=== PATIENT | male | born 1985 | race African-American/Black ===

== ENCOUNTER 2018-02-04 22:39 | Inpatient (IN) | payer SELFPAY ==
[~2018-02-04] VITALS: Ht 182.9 cm; Wt 71.7 kg
[2018-02-04] MEDS ORDERED: IPRATROPIUM BROMIDE (0.02%) 0.5MG/2.5ML NEB HHN STA (23:11)
[2018-02-04] MEDS ORDERED: SODIUM CHLORIDE 0.9% 1,000 ML IV ONE (23:11)
[2018-02-04] MEDS ORDERED: METHYLPREDNISOLONE SOD SUCC 125 MG/2 ML VIAL IV STA (23:11)
[2018-02-04] MEDS ORDERED: MAGNESIUM 2 G PREMIX 50 ML IV ONE (23:15)
[2018-02-05] MEDS: ALBUTEROL (0.083%) 2.5MG/3ML NEB HHN SCH ×2 (00:05→00:37)
[2018-02-05 00:16] LABS: BASOPHILS % 0.7 % (0.0-2.0); EOSINOPHILS % 1.5 % (0.0-5.0); HEMATOCRIT. 38.5 % (42.0-52.0); HEMOGLOBIN. 12.9 g/dL (14.0-18.0); LYMPHOCYTES % 32.8 % (20.0-50.0); MEAN CORPUSCULAR HEMOGLOBIN 28.3 pg (28.0-32.0); MEAN CORPUSCULAR VOLUME 84.5 fL (80.0-94.0); MEAN PLATELET VOLUME 8.3 fl (7.4-10.4); MONOCYTES % 8.9 % (2.0-8.0); NEUTROPHILS % 56.1 % (40.0-76.0); PLATELET 321 x1000/uL (130-400); RED BLOOD CELL COUNT 4.55 mill/uL (4.7-6.1)
[2018-02-05 00:20] LABS: CHLORIDE 103 mEq/L (98-107)
[2018-02-05] MEDS ORDERED: ALBUTEROL (0.083%) 2.5MG/3ML NEB HHN SCH (01:00)
[2018-02-05] MEDS ORDERED: IPRATROPIUM BROMIDE (0.02%) 0.5MG/2.5ML NEB HHN STA (01:00)
[2018-02-05 04:00] VITALS: BP 127/74
[2018-02-05 04:30] VITALS: BP 132/74
[2018-02-05] MEDS ORDERED: IPRATROPIUM/ALBUTEROL 0.5-3(2.5)MG/3ML NEB HHN PRN (05:45)
[2018-02-05 08:00] VITALS: BP 141/77
[2018-02-05] MEDS: IPRATROPIUM/ALBUTEROL 0.5-3(2.5)MG/3ML NEB HHN SCH ×3 (08:08→14:33)
[2018-02-05] MEDS ORDERED: FLUTICASONE/VILANTEROL 200-25 BLST.W.DEV ORI SCH (09:00)
[2018-02-05] MEDS ORDERED: PREDNISONE 20MG TABLET PO SCH (09:00)
[2018-02-05] MEDS ORDERED: BUDESONIDE 0.5MG/2ML NEB HHN SCH ×2 (09:00)
[2018-02-05 09:18] LABS: CHLORIDE 103 mEq/L (98-107)
[2018-02-05 12:00] VITALS: BP 146/65
[2018-02-05 16:00] VITALS: BP 130/66
== END 2018-02-05 19:41 | disposition left against medical advice (07) | DRG 141 ==
LOC: ER 22:39 → 6EST 02-05 01:57 → ENRESERV 02-05 03:00
PROVIDERS: ADMIT Specialist; ATTEND Specialist
DX: J45.901 Unspecified asthma with (acute) exacerbation (principal); F17.210 Nicotine dependence, cigarettes, uncomplicated; Z53.21 Procedure and treatment not carried out due to patient leaving prior to being seen by health care provider; Z95.2 Presence of prosthetic heart valve
CPT/HCPCS: 36415; 71045; 80048; 93005; 94640; 96365; 96375; 99285; J2930; J3475; J7030; J7512; J7611; J7620; J7626

== ENCOUNTER 2018-02-09 02:01 | Emergency (ER) | payer SELFPAY ==
[~2018-02-09] VITALS: Ht 185.4 cm; Wt 79.0 kg
[2018-02-09] MEDS ORDERED: IPRATROPIUM BROMIDE (0.02%) 0.5MG/2.5ML NEB HHN STA (02:07)
[2018-02-09] MEDS ORDERED: PREDNISONE 20MG TABLET PO STA (02:07)
[2018-02-09] MEDS ORDERED: ALBUTEROL (0.083%) 2.5MG/3ML NEB HHN STA (02:07)
[2018-02-09 04:24] VITALS: BP 143/86
== END 2018-02-09 04:26 | disposition home or self-care (01) ==
LOC: ER 02:01
DX: J45.901 Unspecified asthma with (acute) exacerbation (principal)
CPT/HCPCS: 71045; 94644; 99285; J7512; J7611

== ENCOUNTER 2018-08-18 19:53 | Emergency (ER) | payer MEDICAID, OTHER ==
[~2018-08-18] VITALS: Ht 182.9 cm; Wt 70.0 kg
[2018-08-18 20:45] VITALS: BP 127/77
== END 2018-08-18 22:00 | disposition left against medical advice (07) ==
LOC: ER 19:53
DX: J45.909 Unspecified asthma, uncomplicated (principal); Z53.21 Procedure and treatment not carried out due to patient leaving prior to being seen by health care provider

== ENCOUNTER 2018-08-19 08:50 | Emergency (ER) | payer OTHER ==
[~2018-08-19] VITALS: Ht 185.4 cm; Wt 73.0 kg
[2018-08-19 11:00] VITALS: BP 112/72
[2018-08-19] MEDS ORDERED: BACITRACIN ZINC OINT UDPKT TOP ONE (11:15)
[2018-08-19] MEDS ORDERED: ACETAMINOPHEN 325MG TABLET PO ONE (11:45)
== END 2018-08-19 12:19 | disposition home or self-care (01) ==
LOC: ER 08:50
DX: S62.606A Fracture of unspecified phalanx of right little finger, initial encounter for closed fracture (principal); S61.212A Laceration without foreign body of right middle finger without damage to nail, initial encounter; S61.216A Laceration without foreign body of right little finger without damage to nail, initial encounter; Z88.6 Allergy status to analgesic agent; W22.8XXA Striking against or struck by other objects, initial encounter; Y93.89 Activity, other specified; Y92.89 Other specified places as the place of occurrence of the external cause; Y99.8 Other external cause status
CPT/HCPCS: 29130; 73140; 99283; A4217

== ENCOUNTER 2018-10-24 04:36 | Emergency (ER) | payer MEDICAID, OTHER ==
[~2018-10-24] VITALS: Ht 175.3 cm; Wt 79.0 kg
[2018-10-24] MEDS ORDERED: METHYLPREDNISOLONE SOD SUCC 125 MG/2 ML VIAL IV STA (06:15)
[2018-10-24] MEDS ORDERED: IPRATROPIUM BROMIDE (0.02%) 0.5MG/2.5ML NEB HHN STA (06:15)
[2018-10-24] MEDS ORDERED: ALBUTEROL (0.083%) 2.5MG/3ML NEB HHN STA (06:15)
[2018-10-24 06:25] VITALS: BP 121/71
== END 2018-10-24 06:41 | disposition left against medical advice (07) ==
LOC: ER 04:36 → CANBEDREQ 07:47
DX: R06.02 Shortness of breath (principal); R07.9 Chest pain, unspecified; J45.909 Unspecified asthma, uncomplicated; I50.9 Heart failure, unspecified; F17.210 Nicotine dependence, cigarettes, uncomplicated; Z88.6 Allergy status to analgesic agent; Z95.2 Presence of prosthetic heart valve
CPT/HCPCS: 99283

== ENCOUNTER 2018-11-13 23:58 | Emergency (ER) | payer MEDICAID ==
[~2018-11-13] VITALS: Ht 175.3 cm; Wt 77.0 kg
[2018-11-14] MEDS ORDERED: ALBUTEROL (0.083%) 2.5MG/3ML NEB HHN STA (00:15)
[2018-11-14] MEDS ORDERED: IPRATROPIUM BROMIDE (0.02%) 0.5MG/2.5ML NEB HHN STA (00:15)
[2018-11-14] MEDS ORDERED: METHYLPREDNISOLONE SOD SUCC 125 MG/2 ML VIAL IV STA (00:15)
[2018-11-14] MEDS ORDERED: MAGNESIUM 2 G PREMIX 50 ML IV STA (00:15)
[2018-11-14 00:58] LABS: HEMATOCRIT 43.4 % (42.0-52.0); HEMOGLOBIN 14.7 g/dL (14.0-18.0); MEAN CORPUSCULAR HEMOGLOBIN 30.3 pg (28.0-32.0); MEAN CORPUSCULAR VOLUME 89.7 fL (80.0-94.0); PLATELET 262 x1000/uL (130-400); RED BLOOD CELL COUNT 4.84 mill/uL (4.7-6.1); RED CELL DISTRIBUTION WIDTH 17.7 % (11.6-14.6)
[2018-11-14 01:04] LABS: CHLORIDE 107 mEq/L (98-107)
[2018-11-14 01:12] LABS: INR 1.2; PARTIAL THROMBOPLASTIN TIME 28.4 sec (23.4-31.0)
[2018-11-14 01:14] VITALS: BP 128/81
== END 2018-11-14 01:11 | disposition left against medical advice (07) ==
LOC: ER 23:58 → CANBEDREQ 11-14 01:31
DX: R06.02 Shortness of breath (principal); J45.909 Unspecified asthma, uncomplicated; I48.91 Unspecified atrial fibrillation; I50.9 Heart failure, unspecified; F12.10 Cannabis abuse, uncomplicated; F17.210 Nicotine dependence, cigarettes, uncomplicated; Z98.890 Other specified postprocedural states; Z88.6 Allergy status to analgesic agent
CPT/HCPCS: 36415; 71045; 80053; 85027; 85610; 85730; 94640; 96365; 96375; 99284; J2930; J3475; J7611; Z7610